=== PATIENT | female | born 1980 | race Caucasian/White ===

== ENCOUNTER 2023-06-13 20:43 | Emergency (ER) | payer BC, SELFPAY ==
[2023-06-13 20:46] VITALS: BP 148/91; PULSE 84; RESP 18; TEMP 36.1; O2SAT 100
--- NOTE | 2023-06-13 22:22 | PC.NURSE ---
patient escalating in triage demanding to have medical help. patient still won't tell RN in triage why she needs to be seen by MD. Security called at this time due to patient arguing on phone and yelling in triage.
--- NOTE | 2023-06-13 23:01 | PC.NURSE ---
Patient refusing to speak to MD Scott at this time. patient states that she is waiting for her uber, and patient walked outside at this time.
--- NOTE | 2023-06-13 23:02 | ED.GENADULT ---
HPI - General Adult General Chief complaint: Unspecified Stated complaint: won't tell whats wrong Time Seen by Provider: 06/13/23 23:00 History of Present Illness HPI narrative: Patient was brought to the emergency department by EMS. She was standing outside in [facility] yelling that she needed to be seen by a physician. When she was brought to triage she would not communicate with the staff when she was here for. She insisted she could only talk to a physician. No private rooms available in the emergency department so I went up to see her in the triage bay. She was walking towards the door stating that she did not want to be seen anymore. I I told her I was the physician and asked her if she was sure she did not want to be seen. She said that she was going outside to wait for her ride. Patient was alert with a stable gait clear speech and in no acute distress. Review of Systems Review of Systems: Patient unwilling to communicate review of systems ROS unobtainable: Yes other Exam Narrative: GENERAL: Well-appearing, well-nourished, and in no acute distress. HEAD: Normocephalic, atraumatic. ENT: Nares clear, no rhinorrhea or epistaxis. Mucous membranes moist. NECK: Normal ROM CHEST: No respiratory distress. EXTREMITIES: Normal range of motion. SKIN: Warm, dry, no rash. NEURO: No focal deficits. Alert PSYCH: Patient to manic and will not communicate due to chills Course Course Emergency Course: Patient in no distress with normal vital signs. She did not want to come into the triage bay to be seen and left the emergency department waiting room Vital Signs Vital signs: Vital Signs Temperature 36.1 C L 06/13/23 20:46 Pulse Rate 84 06/13/23 20:46 Respiratory Rate 18 06/13/23 20:46 Blood Pressure 148/91 H 06/13/23 20:46 Pulse Oximetry 100 06/13/23 20:46 Oxygen Delivery Room Air 06/13/23 20:46 Temperature 36.1 C L 06/13/23 20:46 Pulse Rate 84 06/13/23 20:46 Respiratory Rate 18 06/13/23 20:46 Blood Pressure 148/91 H 06/13/23 20:46 Pulse Oximetry 100 06/13/23 20:46 Oxygen Delivery Room Air 06/13/23 20:46 Medical Decision Making Vital Signs Vital Signs: Vital Signs Temperature 36.1 C L 06/13/23 20:46 Pulse Rate 84 06/13/23 20:46 Respiratory Rate 18 06/13/23 20:46 Blood Pressure 148/91 H 06/13/23 20:46 Pulse Oximetry 100 06/13/23 20:46 Oxygen Delivery Room Air 06/13/23 20:46 Temperature 36.1 C L 06/13/23 20:46 Pulse Rate 84 06/13/23 20:46 Respiratory Rate 18 06/13/23 20:46 Blood Pressure 148/91 H 06/13/23 20:46 Pulse Oximetry 100 06/13/23 20:46 Oxygen Delivery Room Air 06/13/23 20:46 Discharge Plan Discharge Clinical Impression: Wellness examination Patient Disposition: Left Without Being Seen Follow-up/Referrals: PHYSICIAN NOT ON STAFF,NONSTAFF [Primary Care Provider] - Time of Disposition: 23:05
== END 2023-06-13 23:45 | disposition left against medical advice (07) ==
LOC: ANHED 23:24
DX: R46.89 Other symptoms and signs involving appearance and behavior (principal)
CPT/HCPCS: 99199

== ENCOUNTER 2025-05-03 17:13 | Emergency (ER) | payer SELFPAY ==
[2025-05-03 17:51] VITALS: BP 146/94; PULSE 74; RESP 20; TEMP 36.4; O2SAT 100
--- NOTE | 2025-05-03 19:47 | ED.DENTAL ---
HPI - Dental/Oral General Chief complaint: Dental/Oral Stated complaint: infected tooth Time Seen by Provider: 05/03/25 19:37 Source: patient Mode of arrival: ambulatory Limitations: no limitations History of Present Illness HPI Narrative: RIGHT UPPER AND RIGHT LOWER DENTAL PAIN FOR 4 DAYS. LAST TIME WAS SEEN BY A DENTIST OVER 30 YEARS AGO, SHE DENIES ANY FEVER, CHILLS, NAUSEA, VOMITING, HEADACHE, SORE THROAT, TROUBLE SWALLOWING OR BREATHING Teeth map:  1. SEVERE DENTAL DECAY 2. SEVERE DENTAL DECAY Related Data Allergies Allergy/AdvReac Type Severity Reaction Status Date / Time steriods Allergy Mild Itching Uncoded 05/03/25 19:55 Review of Systems Review of Systems: All systems reviewed & are unremarkable except as noted in HPI and below Exam Narrative: GENERAL APPEARANCE: WELL-DEVELOPED, WELL-NOURISHED SKIN: NORMAL COLOR HEAD: NORMOCEPHALIC, NONTRAUMATIC EYES: CLEAR CONJUNCTIVA ENT: EXTENSIVE DENTAL DECAY RIGHT UPPER AND RIGHT LOWER GUM NECK: SUPPLE, NONTENDER CHEST AND RESPIRATORY: AIRWAY PATENT, NO RESPIRATORY DISTRESS, NO ACCESSORY MUSCLE USE HEART: REGULAR RATE/RHYTHM A NEUROLOGIC: ALERT AND ORIENTED ?3, CREATIVE SERVICES DESIGNER IS NORMAL TESTED, NO GROSS MOTOR DEFICIT Course Vital Signs Vital signs: Vital Signs Temperature 36.4 C 05/03/25 17:51 Pulse Rate 74 05/03/25 17:51 Respiratory Rate 20 05/03/25 17:51 Blood Pressure 146/94 H 05/03/25 17:51 Pulse Oximetry 100 05/03/25 17:51 Oxygen Delivery Room Air 05/03/25 17:51 Temperature 36.4 C 05/03/25 17:51 Pulse Rate 74 05/03/25 17:51 Respiratory Rate 20 05/03/25 17:51 Blood Pressure 146/94 H 05/03/25 17:51 Pulse Oximetry 100 05/03/25 17:51 Oxygen Delivery Room Air 05/03/25 17:51 Critical Care Time Critical Care Time Critical Care Time: No Discharge Plan Discharge Clinical Impression: Dental caries Patient Disposition: Home Condition: Stable Instructions: Antibiotic Form, Toothache (ED) Additional Instructions: RETURN IF SYMPTOMS ARE WORSENING , CALL A DENTIST WITHIN 5-7 DAYS, TAKE TYLENOL NEEDED FOR ACHES AND PAIN, CONTINUE HOME MEDICATIONS. Patient Language: Maltese Prescriptions: New ibuprofen 800 mg tablet 800 mg PO TID Qty: 20 0RF clindamycin HCl [Cleocin HCl] 150 mg capsule 450 mg PO Q8H 10 Days Qty: 90 0RF Follow-up/Referrals: PHYSICIAN NOT ON STAFF,NONSTAFF [Primary Care Provider] Stand Alone Forms: Work/School Release IP
--- OUTSIDE RECORDS SUMMARY | 2025-05-03 20:23 | XMS_ITS | Clinical Summary ---
Author Organization [facility] Address [address] [place] [id number] Care Team Providers Care Research/Program Director Name Role Phone None, Provider MD Primary Care Provider Unavaila ble Allergies Active Allergy Reactions Criticality Noted Date Comments Steroids Unknown 02/05/2024 Pt c/o all over sweating with all steroids. Medications triamcinolone (KENALOG) 0.1 % cream Apply topically 2 (two) times daily. 80 g Active Social History Tobacco Use Types Packs/Day Years Used Date Smoking Tobacco: Every Day Cigarettes Smokeless Tobacco: Never Tobacco Cessation:Ready to Q uit: Not Asked; Counseling Given: Not Answered Alcohol Use Standard Drinks/Week Comments Yes 2 (1 standard drink = 0.6 oz pur e alcohol) Comments Unknown Sex and Gender Information Value Date Recorded Sex Assigned at Not on file Legal Sex Female 5:44 PM CDT Gender Identity Not on file Sexual Orientation Not on file Last Filed Vital Signs Vital Sign Reading Time Taken Comments Blood Pressure 151/127 02/05/2024 7:57 PM CDT Pulse 74 02/05/2024 7:57 PM CDT Temperature 36.8 C (98.3 F) 02/05/2024 7:57 PM CDT Respiratory Rate 18 02/05/2024 7:57 PM CDT Oxygen Saturation 100% 02/05/2024 7:57 PM CDT Inhaled Oxygen Concentration - - Weight 95.6 kg (210 lb 12.2 oz) 02/05/2024 7:57 PM CDT Height 171.5 cm (5' 7.5) 02/05/2024 7:57 PM CDT Body Mass Index 32.52 02/05/2024 7:57 PM CDT Plan of Treatment Health Maintenance Due Date Last Done Comments Cervical Cancer Screening Pa p Smear (Age 30 to 64) Every 3 Years 1982 Annual Physical 1985 Hepatitis C 2000 DTaP, Tdap and Td Vaccines ( 1 - Tdap) 2001 Hepatitis B Vaccines (1 of 3 - 19+ 3-dose series) 2001 Pneumococcal Vaccine: Pediat rics (0 to 5 Years) and At-Risk Patients (6 to 49 Years) (1 of 2 - PCV) 2001 HPV Vaccines (1 - 3-dose SCD M series) 2009 Cervical Cancer Screening Pa p with HPV Testing (Age 30 to 64) Every 5 Years 2012 Cervical Cancer Screening with HPV 2012 Mammogram Screening 2022 COVID-19 Vaccine ( - 2023-2 5 season) 2024 Meningococcal B Vaccine Aged Out No l onger eligible based on patient's age to complete this topic Meningococcal Vaccine Aged Out No alice christine eligible based on patient's age to complete this topic RSV Immunizations Under 20 Months Aged Out No longer eligible based on patient's age to complete this topic Insurance Care Teams Research/Program Director Relationship Specialty Start Date End Date None, Provider, MD PCP - General UNKNOWN PHYSICIAN SPECIALTY 02/05/24
--- OUTSIDE RECORDS SUMMARY | 2025-05-03 20:23 | XMS_ITS | Clinical Summary ---
Author Organization [facility] Address [address] [place] [id number] Care Team Providers Care Steam Press Tender Name Role Phone No, Physician Primary Care Provider [phone] Allergies No known active allergies Medications chlorhexidine (PERIDEX) 0.12 % solution Apply 15 mL to the mouth or throat 4 (four) times a day 473 mL 06/24/2021 Active Active Problems No known active problems Surgical History Surgery Date Site/Laterality Comments URETERAL STENT PLACEMENT Medical History Medical History Date Comments Kidney stone Social History Tobacco Use Types Packs/Day Years Used Date Smoking Tobacco: Every Day Cigarettes Tobacco Cessation:Ready to Q uit: Not Asked; Counseling Given: Not Answered Alcohol Use Standard Drinks/Week Comments Yes 0 (1 standard drink = 0.6 oz pur e alcohol) Personal Safety Answer Date Recorded Getting School Help Needed Not on file 09/04 Comments Unknown Sex and Gender Information Value Date Recorded Sex Assigned at Not on file Legal Sex Female 6:24 PM INSURANCE CHECKER Gender Identity Not on file Sexual Orientation Not on file Obstetrics History Last Filed Vital Signs Vital Sign Reading Time Taken Comments Blood Pressure 123/88 08/27/2022 10:40 AM INSURANCE CHECKER Pulse 92 08/27/2022 10:40 AM INSURANCE CHECKER Temperature 36.2 C (97.2 F) 08/27/2022 10:40 AM INSURANCE CHECKER Respiratory Rate 16 08/27/2022 10:40 AM INSURANCE CHECKER Oxygen Saturation 100% 08/27/2022 10:40 AM INSURANCE CHECKER Inhaled Oxygen Concentration - - Weight 77.1 kg (170 lb) 08/27/2022 3:10 AM INSURANCE CHECKER Height 170.2 cm (5' 7) 08/27/2022 3:10 AM INSURANCE CHECKER Body Mass Index 26.63 08/27/2022 3:10 AM INSURANCE CHECKER Plan of Treatment Health Maintenance Due Date Last Done Comments Breast Cancer Screening-Mammogram 1982 Cervical Cancer Screening 1982 Depression Screening 1982 Hepatitis C Screening 1982 DTaP/Tdap/Td Vaccine (1 - Tdap) 1993 Varicella Vaccines (1 of 2 - 13+ 2-dose series) 1994 Hepatitis B Screening 2000 Regular Well Visit/Exam 18-64 2000 Pneumococcal vaccine <65 (1 of 2 - PCV) 2001 HPV Vaccines (1 - 3-dose SCDM series) 2009 Influenza Vaccine (#1) 2025 Insurance [facility] Care Teams Steam Press Tender Relationship Specialty Start Date End Date No, Physician PCP - General 06/24/21
--- OUTSIDE RECORDS SUMMARY | 2025-05-03 20:23 | XMS_ITS | Clinical Summary ---
Author Organization [facility] Address [address] [place] [address] Phone Care Team Providers Care Quantitative Associate Name Role Phone Provider, None Primary Care Provider Bernard Worrell III, MD, Meliza Unavailable Allergies No known active allergies Medications nicotine (NICODERM CQ) 21 MG/24HR PATCH 24 HR 1 Patch by Transdermal route daily as needed for Other (Nicotine dependency). 30 Patch 2 Active Active Problems Problem Noted Date Diagnosed Date Ureterolithiasis 08/15/2022 Tobacco abuse 08/15/2022 Social History Tobacco Use Types Packs/Day Years Used Date Smoking Tobacco: Some Days Cigarettes 0.3 20 Smokeless Tobacco: Never Tobacco Cessation:Ready to Q uit: Not Asked; Counseling Given: No Alcohol Use Standard Drinks/Week Comments Yes 1 (1 standard drink = 0.6 oz pur e alcohol) Sexually Active Control Partners Comments Yes Male Condom, None Male Comments No Sex and Gender Information Value Date Recorded Sex Assigned at Not on file Legal Sex Female 12:37 AM PASSENGER BRAKEMAN Gender Identity Not on file Sexual Orientation Not on file Last Filed Vital Signs Vital Sign Reading Time Taken Comments Blood Pressure 125/90 06/14/2023 9:45 PM CDT Pulse 82 06/14/2023 11:45 PM CDT Temperature 36.2 C (97.2 F) 06/14/2023 9:45 PM CDT Respiratory Rate 21 06/14/2023 11:4 5 PM CDT Oxygen Saturation 100% 06/14/2023 11: 45 PM CDT Inhaled Oxygen Concentration - - Weight 81.6 kg (180 lb) 06/14/2023 9:45 PM CDT BMI incorrect due to technical error Height 171.5 cm (5' 7.5) 06/14/2023 9: 45 PM CDT BMI incorrect due to technical error Body Mass Index 27.78 06/14/2023 9:45 PM CDT Plan of Treatment Health Maintenance Due Date Last Done Comments Hepatitis C Virus (HCV) Screening 1982 Mammogram 1982 TdaP Immunization 1982 Hepatitis B Immunization (1 of 3 - 19+ 3-dose series) 2001 Pneumococcal Immunization Co mbined (1 of 2 - PCV) 2001 Pap Smear 2003 Human Papillomavirus (HPV) Immunization (1 - 3-dose SCDM series) 2009 Cervical Cancer Screening (CCS) 2012 HPV/Cotest 2012 Discussion re Starting/Frequ ency of Mammograms 2022 SARS-COV-2 Immunization ( season) 2024 Influenza Immunization (#1) 2025 Respiratory Syncytial Virus (RSV) Immunization (Adult) (1 - 1-dose 75+ series) 2057 Meningococcal Immunization (ACWY) Aged Out No longer eligible based on patient's age to complete this topic Rotavirus Immunization Aged Out No lo nger eligible based on patient's age to complete this topic Medical Devices Implanted Type Area Miller Wood Flour Device Identifier Shelf Expiration Date Model / Serial / Lot Stent Ureteral 6fr 2.1fr 26cm 2 Pigtail Curve 2 Durometer Taper Tip Loprfl Graduated Polaris Ultra - [id number] Implanted:Qty: 1 on 08/15/2022 by Mihir Quispe MD at [facility] IMPLANT [employer] 05/12/2025 [id number] / [id number] / [id number] Insurance MEDICAID BLUE CROSS [place] Advance Directives * Full Code (Latest Code Status on File) Date Activated Date Inactivated Comments 08/15/2022 7:37 AM 2022 3:18 PM CPR-Full Treatment: FULL ARREST: Attempt Resuscitation/CPR wit intubation and mechanical ventilation. PRE-ARREST: Use entire range of life support measures to stabilize the patient. Care Teams Quantitative Associate Relationship Specialty Start Date End Date Provider, None [place] PCP - General 08/15/22 Meliza Worrell III, MD [address] [place] [address] Consulting Physician Urology 08/23/22
== END 2025-05-03 20:29 | disposition home or self-care (01) ==
LOC: ANHED 20:21
PROVIDERS: Emergency Provider Emergency Medicine
DX: K02.9 Dental caries, unspecified (principal)
CPT/HCPCS: 99283